=== PATIENT | female | born 1985 | race Caucasian/White ===

== ENCOUNTER 2020-02-15 21:58 | Inpatient (IN) ==
[2020-02-15] MEDS ORDERED: BUTORPHANOL 2 MG/ML VIAL IV PRN (22:09)
[2020-02-15] MEDS ORDERED: LACTATED RINGERS 1,000 ML IV ONE (22:09)
[2020-02-15] MEDS ORDERED: LACTATED RINGERS 1,000 ML IV SCH (22:30)
[2020-02-15 22:49] LABS: Basophils % 0.3 % (0.0-0.8); Eosinophils # 0.1 10*3/uL (0.0-0.87); Eosinophils % 0.4 % (0.00-10.9); Hematocrit 39.6 VOL% (35.7-47.0); Hemoglobin 13.3 GM/DL (12.0-16.0); Immature Granulocytes % 0.3 %; Immature Granulocytes Absolute 0.04 #; Lymphocytes # 2.4 10*3/uL (1.4-4.0); Lymphocytes % 20.9 % (21.3-54.2); Mean Corpuscular HGB Conc 33.6 GM/DL (32-36); Mean Corpuscular Volume 88.6 FL (87-102); Mean Platelet Volume 11.6 FL (9.6-12.0); Monocytes % 6.3 % (1.7-12.7); Neutrophils % 71.8 % (38.7-73.9); Platelet Count 163 T/CUMM (130-400); Red Blood Count 4.47 MC/CUMM (3.8-5.5); Red Cell Distribution Width 13.8 % (9.3-17.3); White Blood Count 11.5 T/CUMM (4-12)
[2020-02-15 23:07] LABS: Alanine Aminotransferase 24 U/L (13-56); Alkaline Phosphatase 152 U/L (45-117); Aspartate Amino Transferase 19 U/L (0-37); Bilirubin,Total < 0.39 MG/DL (0.2-1.0); Blood Urea Nitrogen 16 MG/DL (7-18); Calcium 9.5 MG/DL (8.5-10.1); Estimated Glom Filtration Rate 112 ML/MIN; Glucose 98 MG/DL (74-106); Osmolality,Calculated 273.8 MOS/KG (273-304); Total Protein 7.1 G/DL (6.4-8.3)
[2020-02-16] MEDS ORDERED: diphenhydrAMINE 50 MG/1 ML VIAL IV PRN ×2 (04:46)
[2020-02-16] MEDS ORDERED: CITRIC ACID/SODIUM CITRATE 30 ML UDCUP PO PRN (04:46)
[2020-02-16] MEDS ORDERED: fentaNYL 2 MCG/ROPIV 0.2% EPID 100 ML EPIDURAL PRN (04:46)
[2020-02-16] MEDS ORDERED: ONDANSETRON 4 MG/2 ML VIAL IV ONE (04:46)
[2020-02-16] MEDS ORDERED: ePHEDrine 50 MG/ML VIAL IV PRN (04:46)
[2020-02-16] MEDS ORDERED: NALOXONE 0.4 MG/ML VIAL IV PRN (04:46)
[2020-02-16] MEDS ORDERED: PROMETHAZINE 25 MG/1 ML VIAL IM ONE (04:46)
[2020-02-16] MEDS ORDERED: LACTATED RINGERS 1,000 ML IV ONE (04:46)
[2020-02-16] MEDS ORDERED: hydrOXYzine HCL 25 MG/1 ML VIAL IM PRN (04:46)
[2020-02-16] MEDS ORDERED: FAMOTIDINE 20 MG/2 ML VIAL IV PRN (04:46)
[2020-02-16] MEDS ORDERED: OXYTOCIN/LR 20 UNIT/1,000 ML BAG IV SCH (08:00)
[2020-02-16] MEDS: ONDANSETRON 4 MG/2 ML VIAL IV PRN ×2 (08:51→19:52)
[2020-02-16] MEDS ORDERED: miSOPROStoL 200 MCG TABLET ONE (09:58)
[2020-02-16] MEDS ORDERED: METHYLERGONOVINE 0.2 MG/1 ML AMP ONE (09:59)
[2020-02-16] MEDS ORDERED: TRANEXAMIC ACID 1,000 MG/10 ML VIAL ONE (09:59)
[2020-02-16] MEDS ORDERED: CARBOPROST TROMETHAMINE 250 MCG/ML AMP IM ONE (09:59)
[2020-02-16 11:30] LABS: Cord Arterial Blood HCO3 16.4 MMOL/L
[2020-02-16 11:32] LABS: Cord Venous Blood HCO3 18.9 MMOL/L; Cord Venous Blood PCO2 62.1 MMHG
[2020-02-16 11:42] LABS: Bacteria,Urine Occasional /HPF (Few); Bilirubin,Urine Negative (Negative); Blood, Urine Negative (Negative); Glucose,Urine (UA) Negative (Negative); Ketones,Urine 20 mg/dL (Negative); Nitrite,Urine Negative (Negative); Protein,Urine Negative; RBC,Urine <1 /HPF (0-4); Urine Appearance CLEAR (Clear); Urine Color Yellow (Yellow); Urine Specific Gravity 1.005 (1.001-1.035); Urine Urobilinogen < 2.0 EU/DL (0.2-1.0); WBC,Urine <1 /HPF (0-6)
[2020-02-16] MEDS: IBUPROFEN 800 MG TABLET PO PRN ×3 (12:15→23:55)
[2020-02-16] MEDS ORDERED: ACETAMINOPHEN 325 MG TABLET PO PRN (13:16)
[2020-02-16] MEDS ORDERED: ONDANSETRON 4 MG/2 ML VIAL IV PRN (13:16)
[2020-02-16] MEDS ORDERED: RHO(D) IMMUNE GLOBULIN 300 MCG SYRINGE IM ONE (13:16)
[2020-02-16] MEDS ORDERED: MEASLES/MUMPS/RUBELLA VACCINE 0.5 ML VIAL SUBCUT ONE (13:16)
[2020-02-16] MEDS ORDERED: IBUPROFEN 800 MG TABLET PO PRN (13:16)
[2020-02-16] MEDS ORDERED: OXYTOCIN/LR 20 UNIT/1,000 ML BAG IV ONE (13:16)
[2020-02-16] MEDS ORDERED: LANOLIN 50% CREAM 0.3 OZ TUBE TOP PRN (13:16)
[2020-02-16] MEDS ORDERED: HYDROCORTISONE 2.5% RECTAL CREAM 30 GM TUBE TOP PRN (13:16)
[2020-02-16] MEDS ORDERED: oxyCODONE/ACETAMINOPHEN 5-325 MG TABLET PO PRN ×2 (13:16)
[2020-02-16] MEDS ORDERED: WITCH HAZEL PADS 100/JAR TOP PRN (13:16)
[2020-02-16] MEDS ORDERED: DIPH/TET/ACEL PERT BOOSTER VACCINE 0.5 ML VIAL IM ONE (13:16)
[2020-02-16] MEDS ORDERED: BISACODYL 10 MG SUPP RECTAL PRN (13:16)
[2020-02-16] MEDS: BENZOCAINE 20%/MENTHOL 0.5% SPRAY 56 GM CAN TOP PRN (17:00)
[2020-02-16] MEDS ORDERED: ACETAMINOPHEN/CODEINE 300-30 MG TABLET PO PRN (17:42)
[2020-02-16] MEDS: DOCUSATE SODIUM 100 MG CAPSULE PO SCH (20:45)
[2020-02-17 05:57] LABS: Basophils % 0.2 % (0.0-0.8); Eosinophils # 0.1 10*3/uL (0.0-0.87); Eosinophils % 0.5 % (0.00-10.9); Immature Granulocytes % 0.6 %; Immature Granulocytes Absolute 0.07 #; Lymphocytes # 1.7 10*3/uL (1.4-4.0); Mean Corpuscular HGB Conc 33.7 GM/DL (32-36); Mean Platelet Volume 11.4 FL (9.6-12.0); Monocytes % 5.4 % (1.7-12.7); Neutrophils % 79.3 % (38.7-73.9); Red Cell Distribution Width 14.1 % (9.3-17.3); White Blood Count 12.3 T/CUMM (4-12)
[2020-02-17 05:59] LABS: Hemoglobin 10.1 GM/DL (12.0-16.0); Platelet Count 122 T/CUMM (130-400); Red Blood Count 3.37 MC/CUMM (3.8-5.5)
[2020-02-17 06:16] LABS: Hypochromasia 1+; Microcytosis Slight
[2020-02-17] MEDS: DOCUSATE SODIUM 100 MG CAPSULE PO SCH ×2 (08:57→21:23)
[2020-02-17] MEDS: IBUPROFEN 800 MG TABLET PO PRN ×3 (09:42→21:22)
[2020-02-18] MEDS: IBUPROFEN 800 MG TABLET PO PRN ×2 (03:01→08:45)
[2020-02-18 08:46] VITALS: BP 131/48
[2020-02-18] MEDS: DOCUSATE SODIUM 100 MG CAPSULE PO SCH (09:10)
[2020-02-18] MEDS: BENZOCAINE 20%/MENTHOL 0.5% SPRAY 56 GM CAN TOP PRN (10:08)
== END 2020-02-18 10:50 | disposition home or self-care (01) | DRG 768 ==
LOC: N.LDOUT 21:58 → N.LD 22:00 → N.OB 02-16 13:01
PROVIDERS: ADMIT Specialist; ATTEND Specialist